=== PATIENT | female | born 2000 ===

== ENCOUNTER 2021-05-21 18:35 | Emergency (ER) | payer SELFPAY ==
--- NOTE | 2021-05-21 19:15 | Emergency Department Report ---
ED Asthma HPI - General Chief Complaint: Dyspnea/Respdistress Stated Complaint: Asthma Attack Time Seen by Provider: 05/21/21 18:48 Source: patient Mode of arrival: Stretcher Limitations: No Limitations - History of Present Illness Initial Comments: Patient is a 20-year-old female presents emergency room with complaints of an asthma exacerbation that began yesterday. She has associated shortness of breath, chest tightness, cough. She states that she has not had an asthma exacerbation in approximately 2 years. She states that she does have a nebul izer machine but did not have any solution for it. She states that she did use her inhaler. She denies any fever, vomiting, diarrhea, chills, body aches. She denies any recent travel or known sick contacts. No other past medical history. No allergies to medications. she denies any possibility of . - Related Data Previous Rx's Medication Instructions Recorded Last Taken Type ALBUTEROL NEB's [Proventil 0.083% 2.5 mg IH TID PRN #1 box 05/21/21 Unknown Rx NEBS] Albuterol Sulfate [Proventil Hfa] 1 - 2 puff IH TID PRN #1 hfa.aer.ad 05/21/21 Unknown Rx predniSONE [Deltasone] 40 mg PO QDAY 5 Days #10 tab 05/21/21 Unknown Rx Allergies Allergy/AdvReac Type Severity Reaction Status Date / Time No Known Allergies Allergy Unverified 05/21/21 19:29 ED Review of Systems ROS: Stated complaint: Asthma Attack Other details as noted in HPI Comment: All other systems reviewed and negative ED Past Medical Hx - Medications Home Medications: Home Medications Medication Instructions Recorded Confirmed Last Taken Type ALBUTEROL NEB's [Proventil 0.083% 2.5 mg IH TID PRN #1 box 05/21/21 Unknown Rx NEBS] Albuterol Sulfate [Proventil Hfa] 1 - 2 puff IH TID PRN #1 hfa.aer.ad 05/21/21 Unknown Rx predniSONE [Deltasone] 40 mg PO QDAY 5 Days #10 tab 05/21/21 Unknown Rx ED Physical Exam - General Limitations: No Limitations General appearance: alert, in no apparent distress - Head Head exam: Present: atraumatic, normocephalic - Eye Eye exam: Present: normal appearance - ENT ENT exam: Present: mucous membranes moist - Respiratory Respiratory exam: Present: wheezes (expiratory bilaterally), prolonged expiratory. Absent: respiratory distress, rales, rhonchi, stridor, chest wall tenderness, accessory muscle use, decreased breath sounds - Cardiovascular Cardiovascular Exam: Present: normal rhythm, tachycardia (mildly) - Neurological Exam Neurological exam: Present: alert, oriented X3 - Psychiatric Psychiatric exam: Present: normal affect, normal mood - Skin Skin exam: Present: warm, dry, intact ED Course Vital Signs 05/21/21 05/21/21 05/21/21 18:41 18:53 19:00 Temperature 98.6 F Pulse Rate 111 H Respiratory 18 Rate Blood Pressure 122/70 Blood Pressure 118/74 [Left] O2 Sat by Pulse 97 95 96 Oximetry 05/21/21 05/21/21 05/21/21 19:05 20:01 20:55 Temperature Pulse Rate 55 L Respiratory 18 18 Rate Blood Pressure 104/67 Blood Pressure 101/68 [Left] O2 Sat by Pulse 98 100 100 Oximetry ED Medical Decision Making - Radiology Data Radiology results: report reviewed Ordering Physician: MICKEY RESTREPO Date of Service: 05/21/21 Procedure(s): XR chest routine 2V Accession Number(s): [id number] cc: MICKEY RESTREPO Fluoro Time In Minutes: CHEST 2 VIEWS INDICATION / CLINICAL INFORMATION: SOB, wheezing, cough. History of asthma attack. COMPARISON: None available. FINDINGS: SUPPORT DEVICES: None. HEART / MEDIASTINUM: No significant abnormality. LUNGS / PLEURA: There is mild bilateral bronchial thickening. No other significant pulmonary abnormality. No significant pleural effusion. No pneumothorax. ADDITIONAL FINDINGS: There is moderate thoracolumbar levoscoliosis. IMPRESSION: 1. Bronchial thickening is consistent with the patient's provided history of asthma. No acute abnormality of the chest. Signer Name: Kavin Esqueda MD Signed: 05/21/2021 8:33 PM Workstation Name: [id number] Transcribed By: MARY Dictated By: Kavin Esqueda MD Electronically Authenticated By: Kavin Esqueda MD Signed Date/Time: 05/21/212032 DD/ 30 TD/TT: - Medical Decision Making Patient is a 20-year-old female presents emergency room with complaints of an asthma exacerbation that began yesterday. She has associated shortness of breath, chest tightness, cough. She states that she has not had an asthma exacerbation in approximately 2 years. She states that she does have a nebulizer machine but did not have any solution for it. She states that she did use her inhaler. She denies any fever, vomiting, diarrhea, chills, body aches. She denies any recent travel or known sick contacts. No other past medical history. No allergies to medications. she denies any possibility of . Initial vitals with tachycardia which improved upon repeat. On exam patient has expiratory wheezing bilaterally and prolonged expiratory phase. Chest x-ray shows 1. Bronchial thickening is consistent with the patient's provided history of asthma. No acute abnormality of the chest. Patient given continuous neb treatment and IM Decadron. On reexamination wheezing has significantly improved. Patient is feeling much better and ready to go home. Given refill of her home medications and given steroids for 5 days. Advised patient please take medication as prescribed. follow up with a primary care doctor. return to the emergency room for any new or worsening symptoms. Critical care attestation.: If time is entered above; I have spent that time in minutes in the direct care of this critically ill patient, excluding procedure time. ED Disposition Clinical Impression: Asthma exacerbation Qualifiers: Asthma severity: unspecified severity Asthma persistence: unspecified Qualified Code(s): J45.901 - Unspecified asthma with (acute) exacerbation Disposition: 01 HOME / SELF CARE / HOMELESS Is pt being admited?: No Does the pt Need Aspirin: No Condition: Stable Instructions: Asthma, Adult Additional Instructions: please take medication as prescribed. follow up with a primary care doctor. return to the emergency room for any new or worsening symptoms. Prescriptions: predniSONE [Deltasone] 40 mg PO QDAY 5 Days #10 tab ALBUTEROL NEB's [Proventil 0.083% NEBS] 2.5 mg IH TID PRN #1 box PRN Reason: Wheezing Albuterol Sulfate [Proventil Hfa] 1 - 2 puff IH TID PRN #1 hfa.aer.ad PRN Reason: shortness of breath/wheezing Referrals: JHONNY MARROQUIN MD [Staff Physician] - 3-5 Days [facility] [Provider Group] - 3-5 Days Time of Disposition: 20:50 Print Language: MALTESE
[2021-05-21] MEDS ORDERED: IPRATROPIUM 0.02% NEBU 2.5 ML IH ONE (19:35)
[2021-05-21] MEDS ORDERED: dexAMETHasone 20 MG/5 ML VIAL IM ONE (19:55)
[2021-05-21] MEDS ORDERED: ALBUTEROL 2.5 MG/3 ML NEBU IH ONE (19:55)
--- NOTE | 2021-05-21 20:38 | XRay Report ---
CHEST 2 VIEWS INDICATION / CLINICAL INFORMATION: SOB, wheezing, cough. History of asthma attack. COMPARISON: None available. FINDINGS: SUPPORT DEVICES: None. HEART / MEDIASTINUM: No significant abnormality. LUNGS / PLEURA: There is mild bilateral bronchial thickening. No other significant pulmonary abnormal ity. No significant pleural effusion. No pneumothorax. ADDITIONAL FINDINGS: There is moderate thoracolumbar levoscoliosis. IMPRESSION: 1. Bronchial thickening is consistent with the patient's provided history of asthma. No acute abnorma lity of the chest. Signer Name: Kavin Esqueda MD Signed: 05/21/2021 8:33 PM Workstation Name: [id number]
[2021-05-21 21:45] VITALS: BP 98/68
== END 2021-05-21 21:46 | disposition home or self-care (01) ==
LOC: ED 18:35
DX: J45.901 Unspecified asthma with (acute) exacerbation (principal)
CPT/HCPCS: 71046; 96372; 99284; J1100